=== PATIENT | female | born 1980 | race Caucasian/White ===

== ENCOUNTER 2018-04-03 05:30 | Inpatient (IN) ==
[2018-04-03] MEDS ORDERED: SODIUM CHLORIDE 0.9% 1,000 ML IV STA (06:02)
[2018-04-03] MEDS ORDERED: ONDANSETRON 4 MG/2 ML VIAL IV STA (06:12)
[2018-04-03] MEDS ORDERED: fentaNYL 100 MCG/2 ML VIAL IV STA ×2 (06:12→09:23)
[2018-04-03 07:10] LABS: Basophils % 0.5 % (0.0-0.8); Eosinophils # 0.1 10*3/uL (0.0-0.87); Eosinophils % 1.2 % (0.00-10.9); Hematocrit 39.8 VOL% (35.7-47.0); Hemoglobin 16.9 GM/DL (12.0-16.0); Immature Granulocytes % 0.6 %; Immature Granulocytes Absolute 0.05 #; Lymphocytes # 1.5 10*3/uL (1.4-4.0); Lymphocytes % 17.4 % (21.3-54.2); Mean Corpuscular HGB Conc 42.5 GM/DL (32-36); Mean Corpuscular Hemoglobin 36 PG (27-34); Mean Corpuscular Volume 84.9 FL (87-102); Mean Platelet Volume 11.4 FL (9.6-12.0); Monocytes # 0.5 10*3/uL (0.11-0.8); Monocytes % 5.3 % (1.7-12.7); Neutrophils # 6.4 10*3/uL (1.4-7.4); Platelet Count 291 T/CUMM (130-400); Red Blood Count 4.69 MC/CUMM (3.8-5.5); White Blood Count 8.5 T/CUMM (4-12)
[2018-04-03 07:28] LABS: Apearance,Urine CLEAR (Clear); Bilirubin,Urine Negative (Negative); Blood, Urine Negative (Negative); Glucose,Urine (UA) >=500 mg/dL (Negative); Ketones,Urine 5 mg/dL (Negative); Nitrite,Urine Negative (Negative); Protein,Urine Negative; RBC,Urine 1 /HPF (0-4); Squamous Epithelial Cell,Urine Occasional /HPF (0-10); Urine Color Yellow (Yellow); Urine Specific Gravity 1.031 (1.001-1.035); Urine Urobilinogen < 2.0 EU/DL (0.2-1.0); WBC,Urine <1 /HPF (0-6)
[2018-04-03 08:47] LABS: Albumin 3.1 G/DL (3.4-5.0); Bilirubin,Total 1.45 MG/DL (0.2-1.0); Osmolality,Calculated 276.8 MOS/KG (273-304); Potassium 4.4 MMOL/L (3.5-5.1); Total Protein 6.7 G/DL (6.4-8.3)
[2018-04-03 09:56] LABS: Risk Ratio 12.05; VLDL CHOLESTEROL 741.4 MG/DL
[2018-04-03] MEDS ORDERED: SODIUM CHLORIDE 0.9% 1,000 ML IV SCH (11:43)
[2018-04-03] MEDS ORDERED: GLUCAGON 1 MG VIAL IM PRN (11:43)
[2018-04-03] MEDS: ONDANSETRON 4 MG/2 ML VIAL IV PRN ×2 (12:35→19:14)
[2018-04-03] MEDS: KETOROLAC 30 MG/1 ML VIAL IV SCH ×2 (12:35→17:54)
[2018-04-03] MEDS: PANTOPRAZOLE 40 MG TABLET PO SCH (13:32)
[2018-04-03] MEDS: OMEGA 3 ACID ETHYL ESTERS 1 GM CAPSULE PO SCH ×2 (13:33→20:06)
[2018-04-03] MEDS: ATORVASTATIN 40 MG TABLET PO SCH (13:33)
[2018-04-03] MEDS: FENOFIBRATE 145 MG TABLET PO SCH (13:33)
[2018-04-03 13:35] LABS: Lactic Acid 0.3 MMOL/L (0.4-2.0)
[2018-04-03] MEDS: fentaNYL 100 MCG/2 ML VIAL IV SCH ×3 (14:04→20:06)
[2018-04-03] MEDS: ENOXAPARIN 40 MG/0.4 ML SYRINGE SUBCUT SCH (14:04)
[2018-04-03] MEDS: INSULIN REGULAR 100 UNIT/ML SUBCUT SCH ×3 (14:34→23:45)
[2018-04-03] MEDS: INSULIN REGULAR DRIP 100 ML IV PRN (15:23)
[2018-04-03] MEDS: DEXTROSE 5% NACL 0.9% 1,000 ML IV SCH (17:54)
[2018-04-04] MEDS: KETOROLAC 30 MG/1 ML VIAL IV SCH ×5 (00:48→23:59)
[2018-04-04] MEDS: fentaNYL 100 MCG/2 ML VIAL IV SCH ×4 (00:49→20:01)
[2018-04-04] MEDS: DEXTROSE 5% NACL 0.9% 1,000 ML IV SCH ×3 (01:57→21:06)
[2018-04-04 05:00] LABS: Basophils % 0.4 % (0.0-0.8); Eosinophils # 0.1 10*3/uL (0.0-0.87); Eosinophils % 2.2 % (0.00-10.9); Hematocrit 32.5 VOL% (35.7-47.0); Immature Granulocytes % 0.4 %; Immature Granulocytes Absolute 0.02 #; Lymphocytes # 1.6 10*3/uL (1.4-4.0); Lymphocytes % 28.2 % (21.3-54.2); Mean Corpuscular HGB Conc 36.3 GM/DL (32-36); Mean Corpuscular Hemoglobin 31 PG (27-34); Mean Corpuscular Volume 86.4 FL (87-102); Monocytes # 0.3 10*3/uL (0.11-0.8); Monocytes % 5.8 % (1.7-12.7); Neutrophils # 3.5 10*3/uL (1.4-7.4); Platelet Count 174 T/CUMM (130-400); Red Blood Count 3.76 MC/CUMM (3.8-5.5); Red Cell Distribution Width 11.8 % (9.3-17.3); White Blood Count 5.6 T/CUMM (4-12)
[2018-04-04 05:01] LABS: Hemoglobin 11.8 GM/DL (12.0-16.0)
[2018-04-04 05:05] LABS: Amylase 41 U/L (25-115); Triglycerides 1328 MG/DL (2-150)
[2018-04-04 05:36] LABS: Alanine Aminotransferase 26 U/L (13-56); Albumin 2.9 G/DL (3.4-5.0); Alkaline Phosphatase 61 U/L (45-117); Aspartate Amino Transferase 24 U/L (0-37); Blood Urea Nitrogen 6 MG/DL (7-18); Calcium 7.6 MG/DL (8.5-10.1); Glucose 109 MG/DL (74-106); Osmolality,Calculated 277.4 MOS/KG (273-304); Potassium 2.9 MMOL/L (3.5-5.1); Sodium 140 MMOL/L (136-145); Total Protein 5.5 G/DL (6.4-8.3)
[2018-04-04] MEDS ORDERED: POTASSIUM CHLORIDE RIDER 20 MEQ in PREMIX 1 EACH IV PRN (05:51)
[2018-04-04] MEDS ORDERED: POTASSIUM CHLORIDE INJ 50 MEQ in SODIUM CHLORIDE 0.9% 475 ML IV ONE (06:00)
[2018-04-04] MEDS: INSULIN REGULAR DRIP 100 ML IV PRN (06:29)
[2018-04-04] MEDS: INSULIN REGULAR 100 UNIT/ML SUBCUT SCH ×4 (06:38→23:48)
[2018-04-04] MEDS: ATORVASTATIN 40 MG TABLET PO SCH (08:19)
[2018-04-04] MEDS: OMEGA 3 ACID ETHYL ESTERS 1 GM CAPSULE PO SCH ×2 (08:19→20:01)
[2018-04-04] MEDS: PANTOPRAZOLE 40 MG TABLET PO SCH (08:19)
[2018-04-04] MEDS: FENOFIBRATE 145 MG TABLET PO SCH (08:19)
[2018-04-04] MEDS ORDERED: MAGNESIUM SULF RIDER 2 GM in PREMIX 1 EACH IV ONE (10:37)
[2018-04-04] MEDS: NICOTINE 21 MG/24 HR PATCH TRANSDERM PRN (10:57)
[2018-04-04] MEDS: POTASSIUM CHLORIDE 20 MEQ PACK PO SCH (10:57)
[2018-04-04] MEDS: ENOXAPARIN 40 MG/0.4 ML SYRINGE SUBCUT SCH (11:05)
[2018-04-04] MEDS: ONDANSETRON 4 MG/2 ML VIAL IV PRN ×2 (17:10→20:35)
[2018-04-05] MEDS: fentaNYL 100 MCG/2 ML VIAL IV SCH ×3 (01:17→12:40)
[2018-04-05] MEDS: ONDANSETRON 4 MG/2 ML VIAL IV PRN (02:02)
[2018-04-05 03:10] LABS: Basophils % 0.2 % (0.0-0.8); Eosinophils # 0.1 10*3/uL (0.0-0.87); Eosinophils % 1.5 % (0.00-10.9); Hematocrit 31.2 VOL% (35.7-47.0); Hemoglobin 11.4 GM/DL (12.0-16.0); Immature Granulocytes % 0.4 %; Immature Granulocytes Absolute 0.02 #; Lymphocytes # 1.3 10*3/uL (1.4-4.0); Lymphocytes % 28.4 % (21.3-54.2); Mean Corpuscular HGB Conc 36.5 GM/DL (32-36); Mean Corpuscular Hemoglobin 31 PG (27-34); Mean Corpuscular Volume 84.8 FL (87-102); Mean Platelet Volume 10.6 FL (9.6-12.0); Monocytes # 0.3 10*3/uL (0.11-0.8); Neutrophils # 2.9 10*3/uL (1.4-7.4); Neutrophils % 62.5 % (38.7-73.9); Platelet Count 164 T/CUMM (130-400); Red Blood Count 3.68 MC/CUMM (3.8-5.5); White Blood Count 4.6 T/CUMM (4-12)
[2018-04-05 03:29] LABS: Calcium 7.7 MG/DL (8.5-10.1); Osmolality,Calculated 278.3 MOS/KG (273-304); Potassium 3.4 MMOL/L (3.5-5.1)
[2018-04-05 03:32] LABS: Risk Ratio 7.36; VLDL CHOLESTEROL 158.2 MG/DL
[2018-04-05] MEDS: INSULIN REGULAR DRIP 100 ML IV PRN (04:07)
[2018-04-05] MEDS: INSULIN REGULAR 100 UNIT/ML SUBCUT SCH ×2 (05:19→12:41)
[2018-04-05] MEDS: DEXTROSE 5% NACL 0.9% 1,000 ML IV SCH ×2 (05:22→12:41)
[2018-04-05] MEDS: KETOROLAC 30 MG/1 ML VIAL IV SCH ×2 (05:30→12:41)
[2018-04-05] MEDS ORDERED: POTASSIUM CHLORIDE RIDER 10 MEQ in PREMIX 1 EACH IV PRN (06:07)
[2018-04-05] MEDS: ATORVASTATIN 40 MG TABLET PO SCH (08:36)
[2018-04-05] MEDS: FENOFIBRATE 145 MG TABLET PO SCH (08:37)
[2018-04-05] MEDS: PANTOPRAZOLE 40 MG TABLET PO SCH (08:37)
[2018-04-05] MEDS: POTASSIUM CHLORIDE 20 MEQ PACK PO SCH (08:37)
[2018-04-05] MEDS: NICOTINE 21 MG/24 HR PATCH TRANSDERM PRN (08:38)
[2018-04-05] MEDS: OMEGA 3 ACID ETHYL ESTERS 1 GM CAPSULE PO SCH (08:38)
[2018-04-05] MEDS ORDERED: GLUCAGON 1 MG VIAL IM PRN (08:43)
[2018-04-05] MEDS ORDERED: DEXTROSE 50% 25 GM/50 ML VIAL IV PRN (08:43)
[2018-04-05] MEDS ORDERED: POTASSIUM CHLORIDE 20 MEQ TABLET PO ONE (10:01)
[2018-04-05 12:35] VITALS: BP 135/92
[2018-04-05] MEDS: ENOXAPARIN 40 MG/0.4 ML SYRINGE SUBCUT SCH (12:41)
== END 2018-04-05 12:44 | disposition home or self-care (01) | DRG 439 ==
LOC: N.ED 05:30 → N.EDINP 10:52 → N.ICU 10:55 → N.5E 11:39 → N.ICU 12:45
PROVIDERS: ADMIT Internal Medicine; ATTEND Internal Medicine

== ENCOUNTER 2018-12-30 03:21 | Inpatient (IN) ==
[2018-12-30] MEDS ORDERED: SODIUM CHLORIDE 0.9% 1,000 ML IV STA (03:41)
[2018-12-30] MEDS ORDERED: ONDANSETRON 4 MG/2 ML VIAL IV STA (03:41)
[2018-12-30] MEDS ORDERED: HYDROmorphone 2 MG/1 ML VIAL IV STA ×4 (03:41→05:51)
[2018-12-30 04:00] LABS: Basophils # 0.1 10*3/uL (0.0-0.2); Basophils % 0.6 % (0.0-0.8); Eosinophils # 0.1 10*3/uL (0.0-0.87); Eosinophils % 0.7 % (0.00-10.9); Hemoglobin 15.6 GM/DL (12.0-16.0); Immature Granulocytes % 0.6 %; Immature Granulocytes Absolute 0.07 #; Lymphocytes # 2.4 10*3/uL (1.4-4.0); Lymphocytes % 19.7 % (21.3-54.2); Mean Corpuscular HGB Conc 35.5 GM/DL (32-36); Mean Corpuscular Volume 86.1 FL (87-102); Monocytes % 6.3 % (1.7-12.7); Neutrophils % 72.1 % (38.7-73.9); Platelet Count 336 T/CUMM (130-400); Red Blood Count 5.11 MC/CUMM (3.8-5.5); Red Cell Distribution Width 12.7 % (9.3-17.3); White Blood Count 12.2 T/CUMM (4-12)
[2018-12-30 04:21] LABS: Albumin 4.7 G/DL (3.4-5.0); Bilirubin,Total 0.8 MG/DL (0.2-1.0); Calcium 11.7 MG/DL (8.5-10.1); Osmolality,Calculated 276.1 MOS/KG (273-304); Total Protein 7.6 G/DL (6.4-8.3)
[2018-12-30] MEDS ORDERED: ACETAMINOPHEN 325 MG TABLET PO PRN (05:40)
[2018-12-30] MEDS ORDERED: GLUCAGON 1 MG VIAL IM PRN (05:43)
[2018-12-30] MEDS ORDERED: DEXTROSE 50% 25 GM/50 ML SYRINGE IV PRN (05:43)
[2018-12-30 06:12] LABS: Risk Ratio 4.93; Thyroid Stimulating Hormone 3.72 uIU/ml (0.358-3.74); VLDL CHOLESTEROL 151.2 MG/DL
[2018-12-30] MEDS: SODIUM CHLORIDE 0.9% 1,000 ML IV SCH ×3 (06:53→21:08)
[2018-12-30] MEDS: INSULIN LISPRO 100 UNIT/ML SUBCUT SCH ×5 (07:28→21:07)
[2018-12-30] MEDS ORDERED: MAGNESIUM SULF RIDER 4 GM in PREMIX 1 EACH IV PRN (07:29)
[2018-12-30] MEDS: ENOXAPARIN 40 MG/0.4 ML SYRINGE SUBCUT SCH (07:42)
[2018-12-30] MEDS: POTASSIUM CHLORIDE RIDER 10 MEQ in PREMIX 1 EACH IV SCH ×4 (07:43→13:30)
[2018-12-30] MEDS ORDERED: HYDROmorphone 2 MG/1 ML VIAL IV PRN ×2 (07:58→08:55)
[2018-12-30] MEDS ORDERED: MAGNESIUM SULF RIDER 2 GM in PREMIX 1 EACH IV ONE (08:52)
[2018-12-30] MEDS ORDERED: FENOFIBRATE 145 MG TABLET PO SCH (09:00)
[2018-12-30 09:05] LABS: Apearance,Urine CLEAR (Clear); Bilirubin,Urine Negative (Negative); Blood, Urine Negative (Negative); Glucose,Urine (UA) >=500 mg/dL (Negative); Ketones,Urine 5 mg/dL (Negative); Mucus,Urine Occasional /LPF (Occasional); Nitrite,Urine Negative (Negative); Protein,Urine Negative; RBC,Urine <1 /HPF (0-4); Squamous Epithelial Cell,Urine Few /HPF (0-10); Urine Color Yellow (Yellow); Urine Specific Gravity 1.021 (1.001-1.035); Urine Urobilinogen < 2.0 EU/DL (0.2-1.0); WBC,Urine <1 /HPF (0-6)
[2018-12-30] MEDS ORDERED: KETOROLAC 30 MG/1 ML VIAL IM ONE (09:31)
[2018-12-30] MEDS: ONDANSETRON 4 MG/2 ML VIAL IV PRN ×3 (11:00→20:37)
[2018-12-30] MEDS: HYDROmorphone 2 MG/1 ML VIAL IV PRN ×5 (11:01→23:43)
[2018-12-30] MEDS: ATORVASTATIN 80 MG TABLET PO SCH (11:03)
[2018-12-30] MEDS: CHLORTHALIDONE 25 MG TABLET PO SCH (11:03)
[2018-12-30] MEDS: ATENOLOL 50 MG TABLET PO SCH (11:03)
[2018-12-30] MEDS: PANTOPRAZOLE 40 MG TABLET PO SCH (11:04)
[2018-12-30 12:46] LABS: Barbiturates Screen,Urine Negative (Negative); Benzodiazepines Screen,Urine Negative (Negative); Cannabinoid Screen,Urine Negative (Negative); Opiate Screen,Urine Positive (Negative); Phencyclidine Screen,Urine Negative (Negative)
[2018-12-30] MEDS: MAGNESIUM SULF RIDER 2 GM in PREMIX 1 EACH IV PRN (17:25)
[2018-12-31] MEDS: INSULIN LISPRO 100 UNIT/ML SUBCUT SCH ×6 (02:40→21:34)
[2018-12-31] MEDS: ONDANSETRON 4 MG/2 ML VIAL IV PRN ×5 (04:00→21:45)
[2018-12-31] MEDS: HYDROmorphone 2 MG/1 ML VIAL IV PRN ×6 (04:00→20:13)
[2018-12-31] MEDS: SODIUM CHLORIDE 0.9% 1,000 ML IV SCH ×3 (05:52→15:31)
[2018-12-31] MEDS: CHLORTHALIDONE 25 MG TABLET PO SCH ×2 (07:48→10:35)
[2018-12-31] MEDS: PANTOPRAZOLE 40 MG TABLET PO SCH ×2 (07:48→10:35)
[2018-12-31] MEDS: ATENOLOL 50 MG TABLET PO SCH ×2 (07:49→10:36)
[2018-12-31] MEDS: ENOXAPARIN 40 MG/0.4 ML SYRINGE SUBCUT SCH (07:49)
[2018-12-31] MEDS: ATORVASTATIN 80 MG TABLET PO SCH ×2 (07:49→10:35)
[2018-12-31 07:59] LABS: Basophils % 0.2 % (0.0-0.8); Eosinophils # 0.2 10*3/uL (0.0-0.87); Hematocrit 43.2 VOL% (35.7-47.0); Immature Granulocytes % 0.2 %; Immature Granulocytes Absolute 0.02 #; Lymphocytes # 1.2 10*3/uL (1.4-4.0); Lymphocytes % 14.3 % (21.3-54.2); Mean Corpuscular HGB Conc 34.7 GM/DL (32-36); Mean Corpuscular Volume 89.1 FL (87-102); Mean Platelet Volume 11.1 FL (9.6-12.0); Monocytes % 6.4 % (1.7-12.7); Neutrophils % 76.9 % (38.7-73.9); Platelet Count 246 T/CUMM (130-400); Red Blood Count 4.85 MC/CUMM (3.8-5.5); Red Cell Distribution Width 13.5 % (9.3-17.3); White Blood Count 8.4 T/CUMM (4-12)
[2018-12-31 08:26] LABS: Calcium 7.3 MG/DL (8.5-10.1); Osmolality,Calculated 277.7 MOS/KG (273-304)
[2018-12-31 08:48] LABS: Albumin 2.9 G/DL (3.4-5.0); Bilirubin,Total 0.9 MG/DL (0.2-1.0); Calcium 7.4 MG/DL (8.5-10.1); Total Protein 5.5 G/DL (6.4-8.3)
[2018-12-31] MEDS: POTASSIUM CHLORIDE RIDER 10 MEQ in PREMIX 1 EACH IV PRN ×2 (10:56→13:01)
[2018-12-31] MEDS: NYSTATIN CREAM 15 GM TUBE TOP SCH ×2 (12:08→20:13)
[2018-12-31 14:34] LABS: Apearance,Urine CLOUDY (Clear); Bilirubin,Urine Negative (Negative); Blood, Urine Negative (Negative); Glucose,Urine (UA) >=500 mg/dL (Negative); Ketones,Urine 5 mg/dL (Negative); Mucus,Urine Many /LPF (Occasional); Nitrite,Urine Negative (Negative); Protein,Urine 30 MG/DL; RBC,Urine 3 /HPF (0-4); Squamous Epithelial Cell,Urine Occasional /HPF (0-10); Urine Color Amber (Yellow); Urine Specific Gravity 1.036 (1.001-1.035); WBC,Urine 3 /HPF (0-6)
[2018-12-31 14:41] LABS: Bacteria,Urine Many /HPF (Few)
[2018-12-31] MEDS: ALBUTEROL/IPRATROPIUM 3 ML NEB RESP TX SCH ×3 (15:38→23:44)
[2018-12-31] MEDS: MAGNESIUM SULF RIDER 2 GM in PREMIX 1 EACH IV PRN (17:13)
[2018-12-31] MEDS: OMEGA 3 ACID ETHYL ESTERS 1 GM CAPSULE PO SCH (20:13)
[2019-01-01] MEDS: ONDANSETRON 4 MG/2 ML VIAL IV PRN ×5 (00:03→17:03)
[2019-01-01] MEDS: HYDROmorphone 2 MG/1 ML VIAL IV PRN ×3 (00:03→16:32)
[2019-01-01] MEDS: SODIUM CHLORIDE 0.9% 1,000 ML IV SCH ×2 (00:09→05:09)
[2019-01-01] MEDS: INSULIN LISPRO 100 UNIT/ML SUBCUT SCH ×6 (02:53→23:01)
[2019-01-01] MEDS: ALBUTEROL/IPRATROPIUM 3 ML NEB RESP TX SCH ×6 (02:57→23:58)
[2019-01-01] MEDS: ENOXAPARIN 40 MG/0.4 ML SYRINGE SUBCUT SCH (05:07)
[2019-01-01 06:15] LABS: Calcium 7.1 MG/DL (8.5-10.1); Osmolality,Calculated 264.4 MOS/KG (273-304)
[2019-01-01] MEDS: CHLORTHALIDONE 25 MG TABLET PO SCH (08:27)
[2019-01-01] MEDS: PANTOPRAZOLE 40 MG TABLET PO SCH (08:27)
[2019-01-01] MEDS: ATENOLOL 50 MG TABLET PO SCH (08:27)
[2019-01-01] MEDS: OMEGA 3 ACID ETHYL ESTERS 1 GM CAPSULE PO SCH ×3 (08:28→20:25)
[2019-01-01] MEDS: ATORVASTATIN 80 MG TABLET PO SCH (08:28)
[2019-01-01] MEDS: NYSTATIN CREAM 15 GM TUBE TOP SCH ×2 (08:37→20:24)
[2019-01-01] MEDS: SODIUM CHLOR 0.9% KCL 40 MEQ 40 MEQ/1,000 ML BAG IV SCH ×2 (08:42→16:37)
[2019-01-01] MEDS ORDERED: MAGNESIUM HYDROXIDE SUSP 30 ML UDCUP PO ONE (15:46)
[2019-01-01] MEDS ORDERED: DOCUSATE/SENNA 50-8.6 MG TABLET PO SCH (21:00)
[2019-01-02] MEDS: HYDROmorphone 2 MG/1 ML VIAL IV PRN ×2 (00:44→08:27)
[2019-01-02] MEDS: ONDANSETRON 4 MG/2 ML VIAL IV PRN ×2 (00:51→08:26)
[2019-01-02] MEDS: SODIUM CHLOR 0.9% KCL 40 MEQ 40 MEQ/1,000 ML BAG IV SCH ×2 (00:55→11:05)
[2019-01-02] MEDS: ALBUTEROL/IPRATROPIUM 3 ML NEB RESP TX SCH ×3 (03:57→10:54)
[2019-01-02] MEDS: INSULIN LISPRO 100 UNIT/ML SUBCUT SCH ×4 (04:57→15:02)
[2019-01-02] MEDS: ENOXAPARIN 40 MG/0.4 ML SYRINGE SUBCUT SCH (06:06)
[2019-01-02] MEDS: OMEGA 3 ACID ETHYL ESTERS 1 GM CAPSULE PO SCH ×2 (08:27→15:03)
[2019-01-02] MEDS: ATENOLOL 50 MG TABLET PO SCH (08:28)
[2019-01-02] MEDS: PANTOPRAZOLE 40 MG TABLET PO SCH (08:28)
[2019-01-02] MEDS: ATORVASTATIN 80 MG TABLET PO SCH (08:30)
[2019-01-02] MEDS: CHLORTHALIDONE 25 MG TABLET PO SCH (08:35)
[2019-01-02 12:01] VITALS: BP 118/69
[2019-01-02] MEDS: NYSTATIN CREAM 15 GM TUBE TOP SCH (15:03)
== END 2019-01-02 15:30 | disposition home or self-care (01) | DRG 439 ==
LOC: N.ED 03:21 → N.EDINP 05:40 → N.5E 06:05
PROVIDERS: ADMIT Internal Medicine; ATTEND Internal Medicine

== ENCOUNTER 2019-03-07 22:15 | Inpatient (IN) ==
[2019-03-07] MEDS ORDERED: HYDROmorphone 2 MG/1 ML VIAL IV STA (23:15)
[2019-03-07] MEDS ORDERED: ONDANSETRON 4 MG/2 ML VIAL IV STA (23:15)
[2019-03-07] MEDS ORDERED: SODIUM CHLORIDE 0.9% 1,000 ML IV STA (23:15)
[2019-03-07] MEDS ORDERED: PANTOPRAZOLE 40 MG VIAL IV STA (23:15)
[2019-03-08 00:05] LABS: Basophils # 0.1 10*3/uL (0.0-0.2); Basophils % 0.3 % (0.0-0.8); Eosinophils # 0.1 10*3/uL (0.0-0.87); Eosinophils % 0.7 % (0.00-10.9); Hematocrit 47.5 VOL% (35.7-47.0); Hemoglobin 16.6 GM/DL (12.0-16.0); Immature Granulocytes % 0.5 %; Immature Granulocytes Absolute 0.07 #; Lymphocytes # 1.9 10*3/uL (1.4-4.0); Lymphocytes % 13.4 % (21.3-54.2); Mean Corpuscular HGB Conc 34.9 GM/DL (32-36); Mean Corpuscular Volume 85.1 FL (87-102); Mean Platelet Volume 11.6 FL (9.6-12.0); Monocytes % 4.9 % (1.7-12.7); Neutrophils % 80.2 % (38.7-73.9); Platelet Count 333 T/CUMM (130-400); Red Blood Count 5.58 MC/CUMM (3.8-5.5); White Blood Count 14.3 T/CUMM (4-12)
[2019-03-08 00:29] LABS: Bilirubin,Total 0.7 MG/DL (0.2-1.0); Calcium 9.8 MG/DL (8.5-10.1); Osmolality,Calculated 280.2 MOS/KG (273-304); Total Protein 8.3 G/DL (6.4-8.3)
[2019-03-08] MEDS ORDERED: MAGNESIUM SULF RIDER 2 GM in PREMIX 1 EACH IV STA (01:13)
[2019-03-08] MEDS ORDERED: HYDROmorphone 2 MG/1 ML VIAL IV STA (03:22)
[2019-03-08] MEDS ORDERED: ONDANSETRON 4 MG/2 ML VIAL IV STA (03:24)
[2019-03-08 03:43] LABS: Apearance,Urine Slightly Hazy (Clear); Bacteria,Urine Occasional /HPF (Few); Bilirubin,Urine Negative (Negative); Blood, Urine Negative (Negative); Glucose,Urine (UA) >=500 mg/dL (Negative); Hyaline Casts,Urine 10 /LPF (0-3); Ketones,Urine Negative (Negative); Mucus,Urine Occasional /LPF (Occasional); Nitrite,Urine Negative (Negative); Protein,Urine 30 MG/DL; RBC,Urine 3 /HPF (0-4); Squamous Epithelial Cell,Urine Occasional /HPF (0-10); Urine Color Yellow (Yellow); Urine Specific Gravity 1.035 (1.001-1.035); Urine Urobilinogen < 2.0 EU/DL (0.2-1.0); WBC,Urine 4 /HPF (0-6)
[2019-03-08] MEDS ORDERED: MAGNESIUM SULF RIDER 2 GM in PREMIX 1 EACH IV PRN (04:24)
[2019-03-08] MEDS ORDERED: hydrALAZINE 20 MG/1 ML VIAL IV PRN (04:24)
[2019-03-08] MEDS ORDERED: HYDROCORTISONE 2.5% RECTAL CREAM 30 GM TUBE TOP PRN (04:24)
[2019-03-08] MEDS ORDERED: GLUCAGON 1 MG VIAL IM PRN (04:24)
[2019-03-08] MEDS ORDERED: MAGNESIUM SULF RIDER 4 GM in PREMIX 1 EACH IV PRN (04:24)
[2019-03-08] MEDS ORDERED: SODIUM CHLORIDE 0.9% 1,000 ML IV SCH (04:24)
[2019-03-08] MEDS ORDERED: DEXTROSE 50% 25 GM/50 ML VIAL IV PRN (04:24)
[2019-03-08] MEDS: HYDROmorphone 2 MG/1 ML VIAL IV PRN ×8 (06:22→23:10)
[2019-03-08 07:34] LABS: Basophils % 0.3 % (0.0-0.8); Eosinophils # 0.1 10*3/uL (0.0-0.87); Eosinophils % 1.1 % (0.00-10.9); Hematocrit 42.1 VOL% (35.7-47.0); Hemoglobin 14.8 GM/DL (12.0-16.0); Immature Granulocytes % 0.5 %; Immature Granulocytes Absolute 0.05 #; Lymphocytes # 1.8 10*3/uL (1.4-4.0); Lymphocytes % 17.2 % (21.3-54.2); Mean Corpuscular HGB Conc 35.2 GM/DL (32-36); Mean Platelet Volume 11.5 FL (9.6-12.0); Monocytes % 5.9 % (1.7-12.7); Platelet Count 247 T/CUMM (130-400); Red Blood Count 4.84 MC/CUMM (3.8-5.5); Red Cell Distribution Width 12.3 % (9.3-17.3); White Blood Count 10.5 T/CUMM (4-12)
[2019-03-08 07:58] LABS: Risk Ratio 5.41; VLDL CHOLESTEROL 120.4 MG/DL
[2019-03-08] MEDS: PROMETHAZINE 25 MG/1 ML VIAL IM PRN ×3 (08:27→20:13)
[2019-03-08] MEDS: INSULIN REGULAR 100 UNIT/ML SUBCUT SCH ×4 (08:29→20:54)
[2019-03-08] MEDS: ENOXAPARIN 40 MG/0.4 ML SYRINGE SUBCUT SCH (08:30)
[2019-03-08] MEDS: PANTOPRAZOLE 40 MG VIAL IV SCH (08:31)
[2019-03-08] MEDS: ONDANSETRON 4 MG/2 ML VIAL IV PRN ×3 (11:24→23:10)
[2019-03-08] MEDS: SODIUM CHLORIDE 0.9% 1,000 ML IV SCH ×3 (12:32→20:59)
[2019-03-08] MEDS ORDERED: FLUCONAZOLE 150 MG TABLET PO SCH (17:00)
[2019-03-09] MEDS: HYDROmorphone 2 MG/1 ML VIAL IV PRN ×11 (00:54→23:44)
[2019-03-09] MEDS: SODIUM CHLORIDE 0.9% 1,000 ML IV SCH ×4 (00:57→18:22)
[2019-03-09] MEDS: ONDANSETRON 4 MG/2 ML VIAL IV PRN ×3 (05:27→23:45)
[2019-03-09 06:23] LABS: Basophils % 0.2 % (0.0-0.8); Eosinophils # 0.1 10*3/uL (0.0-0.87); Eosinophils % 0.7 % (0.00-10.9); Hematocrit 37.3 VOL% (35.7-47.0); Immature Granulocytes % 0.5 %; Immature Granulocytes Absolute 0.05 #; Lymphocytes # 0.9 10*3/uL (1.4-4.0); Lymphocytes % 9.7 % (21.3-54.2); Mean Corpuscular HGB Conc 34.9 GM/DL (32-36); Mean Corpuscular Volume 87.4 FL (87-102); Monocytes % 6.4 % (1.7-12.7); Neutrophils % 82.5 % (38.7-73.9); Platelet Count 195 T/CUMM (130-400); Red Blood Count 4.27 MC/CUMM (3.8-5.5); Red Cell Distribution Width 12.4 % (9.3-17.3); White Blood Count 9.5 T/CUMM (4-12)
[2019-03-09 06:47] LABS: Calcium 7.8 MG/DL (8.5-10.1); Osmolality,Calculated 275.7 MOS/KG (273-304)
[2019-03-09] MEDS: INSULIN REGULAR 100 UNIT/ML SUBCUT SCH ×4 (07:13→21:32)
[2019-03-09] MEDS: ENOXAPARIN 40 MG/0.4 ML SYRINGE SUBCUT SCH (09:18)
[2019-03-09] MEDS: PANTOPRAZOLE 40 MG VIAL IV SCH (09:19)
[2019-03-09] MEDS: POTASSIUM CHLORIDE RIDER 10 MEQ in PREMIX 1 EACH IV PRN ×6 (11:15→18:35)
[2019-03-09] MEDS: POTASSIUM CHLORIDE INJ 10 MEQ in LACTATED RINGERS 1,000 ML IV SCH (19:44)
[2019-03-10] MEDS: POTASSIUM CHLORIDE INJ 10 MEQ in LACTATED RINGERS 1,000 ML IV SCH ×4 (01:14→11:11)
[2019-03-10] MEDS: HYDROmorphone 2 MG/1 ML VIAL IV PRN ×3 (02:23→08:27)
[2019-03-10 04:51] LABS: Basophils % 0.2 % (0.0-0.8); Calcium 8.2 MG/DL (8.5-10.1); Eosinophils # 0.2 10*3/uL (0.0-0.87); Eosinophils % 4.2 % (0.00-10.9); Hematocrit 38.9 VOL% (35.7-47.0); Hemoglobin 13.9 GM/DL (12.0-16.0); Immature Granulocytes % 0.4 %; Immature Granulocytes Absolute 0.02 #; Lymphocytes # 1.5 10*3/uL (1.4-4.0); Lymphocytes % 28.7 % (21.3-54.2); Mean Corpuscular HGB Conc 35.7 GM/DL (32-36); Mean Corpuscular Volume 86.3 FL (87-102); Mean Platelet Volume 11.9 FL (9.6-12.0); Monocytes % 8.5 % (1.7-12.7); NRBC # 0.02 10*3/uL; Platelet Count 125 T/CUMM (130-400); Red Blood Count 4.51 MC/CUMM (3.8-5.5); Red Cell Distribution Width 12.3 % (9.3-17.3); White Blood Count 5.3 T/CUMM (4-12)
[2019-03-10 05:36] LABS: Eosinophils 2 % (0-10); Lymphocytes 37 % (20-55); Segmented Neutrophils 56 % (50-85)
[2019-03-10 05:37] LABS: Platelet Estimate Adequate; Total Cells Counted 100
[2019-03-10] MEDS: PANTOPRAZOLE 40 MG VIAL IV SCH (08:26)
[2019-03-10] MEDS: ENOXAPARIN 40 MG/0.4 ML SYRINGE SUBCUT SCH (08:27)
[2019-03-10] MEDS: INSULIN REGULAR 100 UNIT/ML SUBCUT SCH ×4 (09:22→20:23)
[2019-03-10] MEDS: FENOFIBRATE 145 MG TABLET PO SCH (13:07)
[2019-03-10] MEDS: CITALOPRAM 20 MG TABLET PO SCH (13:08)
[2019-03-10] MEDS: GEMFIBROZIL 600 MG TABLET PO SCH (16:45)
[2019-03-10] MEDS ORDERED: ACETAMINOPHEN 325 MG TABLET PO PRN (20:42)
[2019-03-10] MEDS: LIPASE/PROTEASE/AMYLASE 4,200 UNITS CAPSULE PO SCH (21:41)
[2019-03-11] MEDS: GEMFIBROZIL 600 MG TABLET PO SCH (08:53)
[2019-03-11] MEDS: CITALOPRAM 20 MG TABLET PO SCH (08:53)
[2019-03-11] MEDS: ENOXAPARIN 40 MG/0.4 ML SYRINGE SUBCUT SCH (08:53)
[2019-03-11] MEDS: FENOFIBRATE 145 MG TABLET PO SCH (08:53)
[2019-03-11] MEDS: INSULIN REGULAR 100 UNIT/ML SUBCUT SCH (08:57)
[2019-03-11] MEDS: POTASSIUM CHLORIDE RIDER 10 MEQ in PREMIX 1 EACH IV PRN (09:00)
[2019-03-11] MEDS ORDERED: PANTOPRAZOLE 40 MG TABLET PO SCH (09:00)
[2019-03-11] MEDS: LIPASE/PROTEASE/AMYLASE 4,200 UNITS CAPSULE PO SCH (09:23)
[2019-03-11 10:11] VITALS: BP 128/80
== END 2019-03-11 10:22 | disposition home or self-care (01) | DRG 439 ==
LOC: N.ED 22:15 → SUATTDRO 03-08 03:11 → N.EDINP 03-08 03:11 → N.5E 03-08 03:38
PROVIDERS: ADMIT Internal Medicine; ATTEND Internal Medicine

== ENCOUNTER 2019-12-18 23:35 | Inpatient (IN) ==
[2019-12-19] MEDS ORDERED: SODIUM CHLORIDE 0.9% 1,000 ML IV STA ×2 (00:03→02:54)
[2019-12-19] MEDS ORDERED: ONDANSETRON 4 MG/2 ML VIAL IV STA (00:03)
[2019-12-19] MEDS ORDERED: PANTOPRAZOLE 40 MG VIAL IV STA (00:03)
[2019-12-19] MEDS ORDERED: HYDROmorphone 2 MG/1 ML VIAL IV STA (00:03)
[2019-12-19 01:04] LABS: Basophils % 0.3 % (0.0-0.8); Eosinophils # 0.2 10*3/uL (0.0-0.87); Eosinophils % 2.3 % (0.00-10.9); Hematocrit 41.9 VOL% (35.7-47.0); Hemoglobin 15.1 GM/DL (12.0-16.0); Immature Granulocytes % 0.7 %; Immature Granulocytes Absolute 0.06 #; Lymphocytes # 2.1 10*3/uL (1.4-4.0); Lymphocytes % 23.8 % (21.3-54.2); Mean Corpuscular Volume 83.5 FL (87-102); Monocytes % 5.8 % (1.7-12.7); Neutrophils % 67.1 % (38.7-73.9); Platelet Count 227 T/CUMM (130-400); Red Blood Count 5.02 MC/CUMM (3.8-5.5); Red Cell Distribution Width 12.5 % (9.3-17.3); White Blood Count 8.6 T/CUMM (4-12)
[2019-12-19] MEDS ORDERED: HYDROmorphone 2 MG/1 ML VIAL IV ONE ×2 (01:08→03:23)
[2019-12-19 01:19] LABS: Albumin 3.9 G/DL (3.4-5.0); Bilirubin,Total 0.8 MG/DL (0.2-1.0); Calcium 9.8 MG/DL (8.5-10.1); Osmolality,Calculated 273.1 MOS/KG (273-304); Total Protein 7.6 G/DL (6.4-8.3)
[2019-12-19] MEDS ORDERED: POTASSIUM CHLORIDE 20 MEQ TABLET PO STA (01:29)
[2019-12-19] MEDS ORDERED: MAGNESIUM SULF RIDER 2 GM in PREMIX 1 EACH IV STA (01:29)
[2019-12-19 01:34] LABS: Apearance,Urine Slightly Hazy (Clear); Bacteria,Urine Occasional /HPF (Few); Bilirubin,Urine Negative (Negative); Blood, Urine Negative (Negative); Glucose,Urine (UA) >=500 mg/dL (Negative); Ketones,Urine 20 mg/dL (Negative); Mucus,Urine Occasional /LPF (Occasional); Nitrite,Urine Negative (Negative); Protein,Urine Negative; Squamous Epithelial Cell,Urine Moderate /HPF (0-10); Urine Color Yellow (Yellow); Urine Specific Gravity 1.042 (1.001-1.035); WBC,Urine 1 /HPF (0-6)
[2019-12-19] MEDS ORDERED: DEXTROSE 50% 25 GM/50 ML VIAL IV PRN ×2 (04:22→04:58)
[2019-12-19] MEDS ORDERED: GLUCAGON 1 MG VIAL IM PRN (04:22)
[2019-12-19] MEDS: SODIUM CHLORIDE 0.9% 1,000 ML IV SCH ×2 (04:51→11:00)
[2019-12-19 07:25] LABS: Risk Ratio 7.07
[2019-12-19] MEDS ORDERED: MAGNESIUM SULF RIDER 4 GM in PREMIX 1 EACH IV PRN (07:43)
[2019-12-19] MEDS ORDERED: MAGNESIUM SULF RIDER 2 GM in PREMIX 1 EACH IV PRN (07:43)
[2019-12-19] MEDS: ONDANSETRON 4 MG/2 ML VIAL IV PRN ×3 (08:46→16:23)
[2019-12-19] MEDS: PANTOPRAZOLE 40 MG VIAL IV SCH (08:48)
[2019-12-19] MEDS: HYDROmorphone 2 MG/1 ML VIAL IV PRN ×5 (08:48→22:48)
[2019-12-19] MEDS: INSULIN LISPRO 100 UNIT/ML SUBCUT SCH ×2 (10:12→16:47)
[2019-12-19] MEDS: gemfibroziL 600 MG TABLET PO SCH (16:24)
[2019-12-20] MEDS: ONDANSETRON 4 MG/2 ML VIAL IV PRN ×7 (01:52→22:06)
[2019-12-20] MEDS: HYDROmorphone 2 MG/1 ML VIAL IV PRN ×7 (01:53→22:06)
[2019-12-20 05:51] LABS: Albumin 3.4 G/DL (3.4-5.0); Bilirubin,Total 0.9 MG/DL (0.2-1.0); Calcium 8.8 MG/DL (8.5-10.1); Osmolality,Calculated 264.4 MOS/KG (273-304)
[2019-12-20] MEDS: INSULIN LISPRO 100 UNIT/ML SUBCUT SCH ×2 (09:04→18:05)
[2019-12-20] MEDS: FENOFIBRATE 145 MG TABLET PO SCH (09:06)
[2019-12-20] MEDS: ATORVASTATIN 40 MG TABLET PO SCH (09:06)
[2019-12-20] MEDS: gemfibroziL 600 MG TABLET PO SCH ×2 (09:06→15:29)
[2019-12-20] MEDS: PANTOPRAZOLE 40 MG VIAL IV SCH (09:07)
[2019-12-20] MEDS ORDERED: OMEPRAZOLE ODT 20 MG TABLET PO ONE (11:16)
[2019-12-20] MEDS: SODIUM CHLORIDE 0.9% 1,000 ML IV SCH ×2 (12:45→22:07)
[2019-12-20 17:08] LABS: Hematocrit 41.6 VOL% (35.7-47.0); Hemoglobin 14.3 GM/DL (12.0-16.0)
[2019-12-20] MEDS: OMEPRAZOLE ODT 20 MG TABLET PO SCH (21:04)
[2019-12-21] MEDS: ONDANSETRON 4 MG/2 ML VIAL IV PRN ×2 (02:02→06:14)
[2019-12-21] MEDS: HYDROmorphone 2 MG/1 ML VIAL IV PRN ×2 (02:03→06:14)
[2019-12-21 07:16] LABS: Hematocrit 42.1 VOL% (35.7-47.0)
[2019-12-21 07:17] LABS: Basophils % 0.3 % (0.0-0.8); Eosinophils # 0.2 10*3/uL (0.0-0.87); Eosinophils % 2.7 % (0.00-10.9); Hematocrit 41.8 VOL% (35.7-47.0); Hemoglobin 13.9 GM/DL (12.0-16.0); Immature Granulocytes % 0.9 %; Immature Granulocytes Absolute 0.05 #; Lymphocytes # 1.4 10*3/uL (1.4-4.0); Mean Corpuscular HGB Conc 33.3 GM/DL (32-36); Mean Corpuscular Volume 89.9 FL (87-102); Mean Platelet Volume 10.5 FL (9.6-12.0); Neutrophils % 67.1 % (38.7-73.9); Platelet Count 231 T/CUMM (130-400); Red Blood Count 4.65 MC/CUMM (3.8-5.5); Red Cell Distribution Width 12.5 % (9.3-17.3); White Blood Count 5.9 T/CUMM (4-12)
[2019-12-21 07:50] LABS: Calcium 8.1 MG/DL (8.5-10.1); Osmolality,Calculated 268.1 MOS/KG (273-304)
[2019-12-21] MEDS: gemfibroziL 600 MG TABLET PO SCH (10:00)
[2019-12-21] MEDS: OMEPRAZOLE ODT 20 MG TABLET PO SCH (10:00)
[2019-12-21] MEDS: SODIUM CHLORIDE 0.9% 1,000 ML IV SCH (10:00)
[2019-12-21] MEDS: ATORVASTATIN 40 MG TABLET PO SCH (10:00)
[2019-12-21] MEDS: FENOFIBRATE 145 MG TABLET PO SCH (10:01)
[2019-12-21] MEDS: INSULIN LISPRO 100 UNIT/ML SUBCUT SCH (10:01)
[2019-12-21 11:50] VITALS: BP 106/69
== END 2019-12-21 12:49 | disposition home or self-care (01) | DRG 439 ==
LOC: N.ED 23:35 → N.EDINP 12-19 02:50 → SUATTDRO 12-19 02:50 → N.EDINP 12-19 03:41 → N.3E 12-19 04:18
PROVIDERS: ADMIT Internal Medicine; ATTEND Internal Medicine

== ENCOUNTER 2020-05-10 08:44 | Inpatient (IN) ==
[2020-05-10] MEDS ORDERED: SODIUM CHLORIDE 0.9% 1,000 ML IV STA (09:13)
[2020-05-10] MEDS ORDERED: HYDROmorphone 2 MG/1 ML VIAL IV STA ×2 (09:13→10:38)
[2020-05-10] MEDS ORDERED: ONDANSETRON 4 MG/2 ML VIAL IV STA (09:13)
[2020-05-10 09:37] LABS: Basophils % 0.4 % (0.0-0.8); Eosinophils # 0.1 10*3/uL (0.0-0.87); Eosinophils % 1.4 % (0.00-10.9); Hematocrit 45.5 VOL% (35.7-47.0); Hemoglobin 16.3 GM/DL (12.0-16.0); Immature Granulocytes % 0.4 %; Immature Granulocytes Absolute 0.03 #; Lymphocytes # 1.2 10*3/uL (1.4-4.0); Lymphocytes % 15.9 % (21.3-54.2); Mean Corpuscular HGB Conc 35.8 GM/DL (32-36); Mean Corpuscular Volume 85.2 FL (87-102); Mean Platelet Volume 10.4 FL (9.6-12.0); Monocytes % 5.4 % (1.7-12.7); Neutrophils % 76.5 % (38.7-73.9); Platelet Count 183 T/CUMM (130-400); Red Blood Count 5.34 MC/CUMM (3.8-5.5); Red Cell Distribution Width 12.9 % (9.3-17.3); White Blood Count 7.7 T/CUMM (4-12)
[2020-05-10 10:26] LABS: Albumin 3.9 G/DL (3.4-5.0); Bilirubin,Total 0.7 MG/DL (0.2-1.0); Osmolality,Calculated 276.2 MOS/KG (273-304); Total Protein 7.6 G/DL (6.4-8.3)
[2020-05-10 10:40] LABS: Bacteria,Urine Occasional /HPF (Few); Bilirubin,Urine Negative (Negative); Blood, Urine Negative (Negative); Glucose,Urine (UA) >=500 mg/dL (Negative); Ketones,Urine Negative (Negative); Mucus,Urine Occasional /LPF (Occasional); Nitrite,Urine Negative (Negative); Protein,Urine Negative; RBC,Urine 2 /HPF (0-4); Squamous Epithelial Cell,Urine Few /HPF (0-10); Urine Appearance Slightly Hazy (Clear); Urine Color Yellow (Yellow); Urine Specific Gravity 1.032 (1.001-1.035); Urine Urobilinogen < 2.0 EU/DL (0.2-1.0); WBC,Urine <1 /HPF (0-6)
[2020-05-10] MEDS ORDERED: ONDANSETRON 4 MG/2 ML VIAL IV PRN (12:05)
[2020-05-10] MEDS ORDERED: GLUCAGON 1 MG VIAL IM PRN (12:05)
[2020-05-10] MEDS ORDERED: DEXTROSE 50% 25 GM/50 ML VIAL IV PRN (12:05)
[2020-05-10] MEDS: HYDROmorphone 2 MG/1 ML VIAL IV PRN ×3 (14:10→21:42)
[2020-05-10] MEDS: LACTATED RINGERS 1,000 ML IV SCH ×3 (18:18→20:30)
[2020-05-10] MEDS: cefTRIAXone 1,000 MG in SYRINGE 1 EACH IV SCH (18:23)
[2020-05-10] MEDS: AZITHROMYCIN INJ 500 MG in SODIUM CHLORIDE 0.9% 250 ML IV SCH (18:23)
[2020-05-10] MEDS: INSULIN LISPRO 100 UNIT/ML SUBCUT SCH (19:06)
[2020-05-11] MEDS: INSULIN LISPRO 100 UNIT/ML SUBCUT SCH ×5 (00:38→21:09)
[2020-05-11] MEDS: HYDROmorphone 2 MG/1 ML VIAL IV PRN ×6 (01:03→21:05)
[2020-05-11] MEDS: LACTATED RINGERS 1,000 ML IV SCH ×7 (02:03→19:47)
[2020-05-11 04:58] LABS: Basophils % 0.4 % (0.0-0.8); Eosinophils # 0.1 10*3/uL (0.0-0.87); Eosinophils % 2.5 % (0.00-10.9); Hematocrit 35.8 VOL% (35.7-47.0); Hemoglobin 12.4 GM/DL (12.0-16.0); Immature Granulocytes % 0.4 %; Immature Granulocytes Absolute 0.02 #; Lymphocytes # 1.6 10*3/uL (1.4-4.0); Lymphocytes % 30.6 % (21.3-54.2); Mean Corpuscular HGB Conc 34.6 GM/DL (32-36); Mean Corpuscular Volume 87.7 FL (87-102); Mean Platelet Volume 10.8 FL (9.6-12.0); Monocytes % 6.8 % (1.7-12.7); Neutrophils % 59.3 % (38.7-73.9); Platelet Count 163 T/CUMM (130-400); Red Blood Count 4.08 MC/CUMM (3.8-5.5); White Blood Count 5.2 T/CUMM (4-12)
[2020-05-11 05:39] LABS: Calcium 8.2 MG/DL (8.5-10.1)
[2020-05-11] MEDS: cefTRIAXone 1,000 MG in SYRINGE 1 EACH IV SCH (12:22)
[2020-05-11] MEDS: AZITHROMYCIN INJ 500 MG in SODIUM CHLORIDE 0.9% 250 ML IV SCH (12:24)
[2020-05-12] MEDS: HYDROmorphone 2 MG/1 ML VIAL IV PRN ×4 (00:10→09:26)
[2020-05-12] MEDS: LACTATED RINGERS 1,000 ML IV SCH ×3 (00:13→08:19)
[2020-05-12 05:45] LABS: Basophils % 0.5 % (0.0-0.8); Eosinophils # 0.1 10*3/uL (0.0-0.87); Eosinophils % 3.2 % (0.00-10.9); Hematocrit 34.1 VOL% (35.7-47.0); Hemoglobin 12.1 GM/DL (12.0-16.0); Immature Granulocytes % 0.5 %; Immature Granulocytes Absolute 0.02 #; Lymphocytes # 1.4 10*3/uL (1.4-4.0); Lymphocytes % 35.9 % (21.3-54.2); Mean Corpuscular HGB Conc 35.5 GM/DL (32-36); Mean Corpuscular Volume 85.7 FL (87-102); Mean Platelet Volume 10.5 FL (9.6-12.0); Monocytes % 4.7 % (1.7-12.7); Neutrophils % 55.2 % (38.7-73.9); Platelet Count 162 T/CUMM (130-400); Red Blood Count 3.98 MC/CUMM (3.8-5.5); Red Cell Distribution Width 12.5 % (9.3-17.3)
[2020-05-12 05:58] LABS: Calcium 8.7 MG/DL (8.5-10.1); Osmolality,Calculated 278.5 MOS/KG (273-304)
[2020-05-12] MEDS: INSULIN LISPRO 100 UNIT/ML SUBCUT SCH (09:27)
[2020-05-12 11:26] VITALS: BP 133/85
== END 2020-05-12 11:19 | disposition home or self-care (01) | DRG 439 ==
LOC: N.ED 08:44 → N.EDINP 12:05 → N.TELEN 17:12
PROVIDERS: ADMIT Internal Medicine; ATTEND Internal Medicine

== ENCOUNTER 2020-06-24 03:06 | Inpatient (IN) ==
[2020-06-24] MEDS ORDERED: ONDANSETRON 4 MG/2 ML VIAL IV STA (03:43)
[2020-06-24] MEDS ORDERED: PANTOPRAZOLE 40 MG VIAL IV STA (03:43)
[2020-06-24] MEDS ORDERED: SODIUM CHLORIDE 0.9% 1,000 ML IV STA (03:43)
[2020-06-24] MEDS ORDERED: HYDROmorphone 2 MG/1 ML VIAL IV STA (03:43)
[2020-06-24] MEDS ORDERED: ALUM/MAG/SIMETH/LIDO VISC 1:1 30 ML BOTTLE PO STA (03:43)
[2020-06-24 04:15] LABS: Albumin 4.2 G/DL (3.4-5.0); Bilirubin,Total 0.6 MG/DL (0.2-1.0); Calcium 8.9 MG/DL (8.5-10.1); Osmolality,Calculated 278.1 MOS/KG (273-304); Total Protein 7.9 G/DL (6.4-8.3)
[2020-06-24 04:44] LABS: Basophils % 0.4 % (0.0-0.8); Eosinophils # 0.1 10*3/uL (0.0-0.87); Eosinophils % 1.8 % (0.00-10.9); Hematocrit 42.3 VOL% (35.7-47.0); Immature Granulocytes % 0.7 %; Immature Granulocytes Absolute 0.05 #; Lymphocytes # 2.4 10*3/uL (1.4-4.0); Lymphocytes % 32.6 % (21.3-54.2); Mean Corpuscular HGB Conc 36.9 GM/DL (32-36); Mean Corpuscular Volume 84.8 FL (87-102); Mean Platelet Volume 11.2 FL (9.6-12.0); Monocytes % 5.5 % (1.7-12.7); Platelet Count 220 T/CUMM (130-400); Red Blood Count 4.99 MC/CUMM (3.8-5.5); Red Cell Distribution Width 12.6 % (9.3-17.3); White Blood Count 7.2 T/CUMM (4-12)
[2020-06-24 04:46] LABS: Hemoglobin 15.6 GM/DL (12.0-16.0)
[2020-06-24] MEDS ORDERED: MAGNESIUM SULF RIDER 2 GM in PREMIX 1 EACH IV STA (05:09)
[2020-06-24] MEDS ORDERED: DEXTROSE 50% 25 GM/50 ML VIAL IV PRN (05:29)
[2020-06-24] MEDS ORDERED: GLUCAGON 1 MG VIAL IM PRN (05:29)
[2020-06-24] MEDS ORDERED: HYDROmorphone 2 MG/1 ML VIAL IV PRN (05:32)
[2020-06-24] MEDS ORDERED: DEXTROSE 50% 25 GM/50 ML SYRINGE IV PRN (05:36)
[2020-06-24] MEDS: SODIUM CHLORIDE 0.9% 1,000 ML IV SCH ×2 (05:54→16:49)
[2020-06-24 06:16] LABS: Bilirubin,Urine Negative (Negative); Blood, Urine NEGATIVE (Negative); Calcium Oxalate Crystals,Urine Many /HPF (Few); Glucose,Urine (UA) 500 mg/dL (Negative); Ketones,Urine Negative (Negative); Mucus,Urine Occasional /LPF (Occasional); Nitrite,Urine Negative (Negative); Protein,Urine 100 MG/DL; RBC,Urine 6 /HPF (0-4); Squamous Epithelial Cell,Urine Occasional /HPF (0-10); Urine Appearance CLEAR (Clear); Urine Color Yellow (Yellow); Urine Specific Gravity 1.035 (1.001-1.035); Urine Urobilinogen 0.2 EU/DL (0.2-1.0); WBC,Urine 2 /HPF (0-6)
[2020-06-24] MEDS: ONDANSETRON 4 MG/2 ML VIAL IV PRN ×3 (07:45→20:19)
[2020-06-24] MEDS: INSULIN REGULAR 100 UNIT/ML SUBCUT SCH ×4 (08:49→20:18)
[2020-06-24] MEDS: ENOXAPARIN 40 MG/0.4 ML SYRINGE SUBCUT SCH (08:50)
[2020-06-24] MEDS ORDERED: HYDROmorphone 2 MG/1 ML VIAL IV ONE (09:31)
[2020-06-24] MEDS: HYDROmorphone 2 MG/1 ML VIAL IV PRN ×5 (12:37→23:12)
[2020-06-25] MEDS: ONDANSETRON 4 MG/2 ML VIAL IV PRN ×5 (02:11→20:26)
[2020-06-25] MEDS: HYDROmorphone 2 MG/1 ML VIAL IV PRN ×7 (02:14→23:42)
[2020-06-25 06:02] LABS: Basophils % 0.1 % (0.0-0.8); Eosinophils # 0.2 10*3/uL (0.0-0.87); Hematocrit 40.4 VOL% (35.7-47.0); Hemoglobin 14.2 GM/DL (12.0-16.0); Immature Granulocytes % 0.5 %; Immature Granulocytes Absolute 0.04 #; Lymphocytes # 1.1 10*3/uL (1.4-4.0); Lymphocytes % 12.5 % (21.3-54.2); Mean Corpuscular HGB Conc 35.1 GM/DL (32-36); Mean Corpuscular Volume 87.3 FL (87-102); Mean Platelet Volume 10.6 FL (9.6-12.0); Monocytes % 6.5 % (1.7-12.7); Neutrophils % 78.4 % (38.7-73.9); Platelet Count 186 T/CUMM (130-400); Red Blood Count 4.63 MC/CUMM (3.8-5.5); Red Cell Distribution Width 12.9 % (9.3-17.3); White Blood Count 8.5 T/CUMM (4-12)
[2020-06-25 06:22] LABS: Calcium 7.9 MG/DL (8.5-10.1); Osmolality,Calculated 270.5 MOS/KG (273-304)
[2020-06-25 06:27] LABS: Albumin 3.1 G/DL (3.4-5.0); Bilirubin,Total 0.6 MG/DL (0.2-1.0); Calcium 7.7 MG/DL (8.5-10.1); Osmolality,Calculated 272.4 MOS/KG (273-304); Total Protein 6.5 G/DL (6.4-8.3)
[2020-06-25] MEDS: SODIUM CHLORIDE 0.9% 1,000 ML IV SCH ×2 (07:59→20:24)
[2020-06-25] MEDS: ENOXAPARIN 40 MG/0.4 ML SYRINGE SUBCUT SCH (08:26)
[2020-06-25] MEDS: INSULIN REGULAR 100 UNIT/ML SUBCUT SCH ×4 (08:40→20:25)
[2020-06-25 13:52] LABS: Risk Ratio 7.37; VLDL CHOLESTEROL 210.6 MG/DL
[2020-06-25] MEDS: gemfibroziL 600 MG TABLET PO SCH (16:19)
[2020-06-26] MEDS: HYDROmorphone 2 MG/1 ML VIAL IV PRN ×3 (03:13→09:32)
[2020-06-26] MEDS: ONDANSETRON 4 MG/2 ML VIAL IV PRN ×3 (03:14→12:57)
[2020-06-26] MEDS: SODIUM CHLORIDE 0.9% 1,000 ML IV SCH (03:29)
[2020-06-26 05:40] LABS: Basophils % 0.3 % (0.0-0.8); Eosinophils # 0.2 10*3/uL (0.0-0.87); Eosinophils % 3.1 % (0.00-10.9); Hemoglobin 12.7 GM/DL (12.0-16.0); Immature Granulocytes % 0.6 %; Immature Granulocytes Absolute 0.04 #; Lymphocytes # 1.1 10*3/uL (1.4-4.0); Lymphocytes % 15.9 % (21.3-54.2); Mean Corpuscular HGB Conc 35.3 GM/DL (32-36); Mean Corpuscular Volume 85.9 FL (87-102); Mean Platelet Volume 10.9 FL (9.6-12.0); Monocytes % 6.3 % (1.7-12.7); Neutrophils % 73.8 % (38.7-73.9); Platelet Count 175 T/CUMM (130-400); Red Blood Count 4.19 MC/CUMM (3.8-5.5); Red Cell Distribution Width 12.3 % (9.3-17.3)
[2020-06-26 06:09] LABS: Albumin 2.9 G/DL (3.4-5.0); Bilirubin,Direct 0.14 MG/DL (0.0-0.20); Bilirubin,Indirect 0.7 MG/DL (0.0-1.0); Bilirubin,Total 0.8 MG/DL (0.2-1.0); Total Protein 6.3 G/DL (6.4-8.3)
[2020-06-26] MEDS ORDERED: CITALOPRAM 20 MG TABLET PO SCH (09:00)
[2020-06-26] MEDS: INSULIN REGULAR 100 UNIT/ML SUBCUT SCH ×2 (09:31→12:56)
[2020-06-26] MEDS: gemfibroziL 600 MG TABLET PO SCH (09:31)
[2020-06-26] MEDS: ENOXAPARIN 40 MG/0.4 ML SYRINGE SUBCUT SCH (09:32)
[2020-06-26 11:15] VITALS: BP 119/73
== END 2020-06-26 15:24 | disposition home or self-care (01) | DRG 439 ==
LOC: N.ED 03:06 → N.EDINP 03:06 → N.3E 06:59 → SUATTDRO 14:39
PROVIDERS: ADMIT Internal Medicine Critical Care Medicine; ATTEND Internal Medicine